=== PATIENT | male | born 1995 | race Asian ===

== ENCOUNTER 2024-05-15 15:16 | Outpatient (CLI) | payer BC | END 2024-05-15 15:17 | disposition home or self-care (01) | LOC: CSHMRI 15:16 | PROVIDERS: ATTEND Student in an Organized Health Care Education/Training Program | DX: S43.004A Unspecified dislocation of right shoulder joint, initial encounter (principal); S42.291A Other displaced fracture of upper end of right humerus, initial encounter for closed fracture; S46.011A Strain of muscle(s) and tendon(s) of the rotator cuff of right shoulder, initial encounter; M71.811 Other specified bursopathies, right shoulder; M89.8X1 Other specified disorders of bone, shoulder ==